=== PATIENT | male | born 1965 | race Caucasian/White ===

== ENCOUNTER 2019-07-20 20:42 | Emergency (ER) | payer MEDICAID ==
[~2019-07-20] VITALS: Ht 165.1 cm; Wt 57.6 kg
[~2019-07-20 20:42] MED LIST: CAR1 PO; NORCO1 TA2 PO; PANTOPRAZOLE SO20 M1 PO; SENNA8.6 M2 PO; ZOF4 PO
[2019-07-20 21:30] LABS: BASOPHIL % 1.3 % (0-2); PLATELET COUNT 331 x10^3mcL (130-400); RED CELL DISTRIBUTION WIDTH 13.6 % (11.5-14.5)
[2019-07-20 21:46] LABS: CARBON DIOXIDE 27.2 mmol/L (21-32); CHLORIDE SERUM 105 mmol/L (98-107); CREATININE SERUM 1.2 mg/dL (0.7-1.3); GFR1 > 60 mL/min; GLUCOSE SERUM 113 mg/dL (74-106); POTASSIUM SERUM 4.1 mmol/L (3.5-5.1); SODIUM SERUM 141 mmol/L (136-145)
[2019-07-20 21:50] LABS: ALBUMIN 3.5 g/dL (3.4-5.0); ALKALINE PHOSPHATASE 103 U/L (46-116); ALT/SGPT 19 U/L (16-63); AST/SGOT 19 U/L (15-37); BILIRUBIN TOTAL 0.32 mg/dL (0.20-1.00); TOTAL PROTEIN, SERUM 7.4 g/dL (6.4-8.2)
[2019-07-21 00:16] VITALS: BP 101/64
== END 2019-07-21 00:16 | disposition home or self-care (01) ==
LOC: ED 20:42
DX: J40 Bronchitis, not specified as acute or chronic (principal); R10.12 Left upper quadrant pain; Z85.028 Personal history of other malignant neoplasm of stomach; Z88.5 Allergy status to narcotic agent
CPT/HCPCS: 36415; J1885; J7512; J7620

== ENCOUNTER 2019-08-14 16:10 | Emergency (ER) | payer MEDICAID ==
[~2019-08-14] VITALS: Ht 165.1 cm; Wt 56.2 kg
[2019-08-14 16:25] VITALS: Ht 165.1 cm; Wt 56.2 kg
[2019-08-14 21:16] VITALS: BP 108/70
== END 2019-08-14 21:16 | disposition home or self-care (01) ==
LOC: ED 16:10
DX: S43.402A Unspecified sprain of left shoulder joint, initial encounter (principal); S76.011A Strain of muscle, fascia and tendon of right hip, initial encounter; L73.9 Follicular disorder, unspecified; Z88.5 Allergy status to narcotic agent; Z98.890 Other specified postprocedural states; X50.9XXA Other and unspecified overexertion or strenuous movements or postures, initial encounter; Y93.89 Activity, other specified; Y92.89 Other specified places as the place of occurrence of the external cause; Y99.8 Other external cause status